=== PATIENT | male | born 1990 | race Two or more races ===

== ENCOUNTER 2020-06-15 00:15 | Emergency (ER) | payer OTHER ==
[~2020-06-15] VITALS: Ht 180.3 cm; Wt 120.5 kg
[2020-06-15] MEDS ORDERED: ACETAMINOPHEN 325 MG TABLET PO ONE (02:15)
[2020-06-15 03:01] LABS: COVID AG,FIA SOURCE NASOPHARYNGEAL
[2020-06-15] MEDS ORDERED: METOCLOPRAMIDE HCL 5 MG/ML 2 ML VIAL IVP ONE (03:45)
[2020-06-15 03:54] LABS: BASOPHILS % (AUTO) 0.8 % (0.0-2.0); EOSINOPHILS % (AUTO) 7.4 % (1.0-6.0); HEMOGLOBIN 13.6 g/dL (13.5-17.5); LYMPHOCYTES # (AUTO) 3.3 K/uL (1.0-4.8); LYMPHOCYTES % (AUTO) 29.9 % (22.0-44.0); MEAN CORPUSCULAR HEMOGLOBIN 27.6 pg (26.0-34.0); MEAN CORPUSCULAR HGB CONC 33.1 G/dL (31.0-37.0); MEAN CORPUSCULAR VOLUME 83 fL (80-100); MONOCYTES # (AUTO) 0.8 K/uL (0.1-1.0); MONOCYTES % (AUTO) 7.3 % (2.0-9.0); NEUTROPHILS % (AUTO) 54.6 % (40.0-70.0); PLATELET COUNT (AUTO) 338 K/uL (150-450); RED BLOOD CELL COUNT(AUTO) 4.92 MIL/uL (4.50-5.90); RED CELL DISTRIBUTION WIDTH 13.9 % (11.5-14.5)
[2020-06-15 04:03] LABS: ALANINE AMINOTRANSFERASE 41 U/L (12-78); ALBUMIN 3.5 g/dL (3.4-5.0); ALKALINE PHOSPHATASE 75 U/L (46-116); ASPARTATE AMINOTRANSFERASE 21 U/L (15-37); BILIRUBIN,TOTAL 0.4 mg/dL (0.1-1.0); CALCIUM, TOTAL 8.7 mg/dL (8.8-10.5); CARBON DIOXIDE 26 mmol/L (22-29); CREATININE 0.98 mg/dL (0.60-1.30); GLOMERULAR FILTR. RATE CALC > 60 mL/min (>60); GLUCOSE,RANDOM 92 mg/dL (70-110); TOTAL PROTEIN, SERUM 7.5 g/dL (6.4-8.2); UREA NITROGEN, BLOOD 13 mg/dL (7-18)
[2020-06-15 04:25] LABS: ANION GAP 8 mmol/L (8-16); CHLORIDE 106 mmol/L (98-107); POTASSIUM 4.3 mmol/L (3.5-5.1); SODIUM SERUM 140 mmol/L (136-145)
[2020-06-15 09:11] VITALS: BP 120/72
== END 2020-06-15 10:00 | disposition home or self-care (01) ==
LOC: EMS 00:18
DX: R51.9 Headache, unspecified (principal); Z20.822 Contact with and (suspected) exposure to COVID-19
CPT/HCPCS: 36415; 80053; 82962; 85025; 87426; 93005; 96374; 99285; J2765; U0003

== ENCOUNTER 2023-09-30 17:54 | Emergency (ER) | payer BC, OTHER ==
[~2023-09-30] VITALS: Ht 180.3 cm; Wt 120.4 kg
[2023-09-30 18:45] VITALS: BP 127/79; PULSE 75; RESP 16; TEMP 97.7
[2023-09-30] MEDS ORDERED: AMOX1TAB16 PO (19:05)
[2023-09-30] MEDS: PERTUSS(ACELL),DIPH,TET/PF 0.5 ML SYRINGE [ADULT] IM. ONE (20:04)
[2023-09-30] MEDS: BACITRACIN 0.9 GM PACKET OINTMENT TP ONE (20:06)
[2023-09-30] MEDS: RABIES VACCINE, HUMAN DIPLOID/PF 2.5 UNITS/ML VIAL IM. ONE (20:06)
[2023-09-30] MEDS: AMOX TR/POT CLAV 875 MG/125 MG TABLET PO ONE (20:06)
[2023-09-30] MEDS: RABIES IMMUNE GLOBULIN/PF 150 UNIT/ML 10 ML VIAL IM. ONE (20:07)
== END 2023-09-30 20:45 | disposition home or self-care (01) ==
LOC: EMS 18:09
DX: S61.253A Open bite of left middle finger without damage to nail, initial encounter (principal); W54.0XXA Bitten by dog, initial encounter; Y93.89 Activity, other specified; Y92.89 Other specified places as the place of occurrence of the external cause; Y99.8 Other external cause status
CPT/HCPCS: 90375; 90471; 90472; 90675; 90715; 96372; 99284

== ENCOUNTER 2023-10-02 15:03 | Emergency (ER) | payer BC ==
[~2023-10-02] VITALS: Ht 180.3 cm; Wt 120.5 kg
[~2023-10-02 15:03] MED LIST: AMOX1TAB16 PO
[2023-10-02 15:10] VITALS: BP 127/74; PULSE 79; RESP 16; TEMP 98.4
[2023-10-02] MEDS: RABIES VACCINE, HUMAN DIPLOID/PF 2.5 UNITS/ML VIAL IM. ONE (15:53)
== END 2023-10-02 15:59 | disposition home or self-care (01) ==
LOC: EMS 15:04
DX: S61.233D Puncture wound without foreign body of left middle finger without damage to nail, subsequent encounter (principal); Z29.14 Encounter for prophylactic rabies immune globulin; Z48.00 Encounter for change or removal of nonsurgical wound dressing; W54.0XXD Bitten by dog, subsequent encounter
CPT/HCPCS: 90471; 90675; 99281; 99283

== ENCOUNTER 2023-10-07 18:50 | Emergency (ER) | payer BC ==
[~2023-10-07] VITALS: Ht 180.3 cm; Wt 120.4 kg
[2023-10-07 19:02] VITALS: BP 142/85; PULSE 71; RESP 18; TEMP 98.8
[2023-10-07] MEDS: RABIES VACCINE, HUMAN DIPLOID/PF 2.5 UNITS/ML VIAL IM. ONE (19:46)
== END 2023-10-07 19:52 | disposition home or self-care (01) ==
LOC: EMS 18:50
DX: S61.452D Open bite of left hand, subsequent encounter (principal); Z29.14 Encounter for prophylactic rabies immune globulin; W54.0XXD Bitten by dog, subsequent encounter
CPT/HCPCS: 90471; 90675; 99281

== ENCOUNTER 2023-11-12 19:16 | Emergency (ER) | payer BC ==
[~2023-11-12] VITALS: Ht 180.3 cm; Wt 120.5 kg
[~2023-11-12 19:16] MED LIST changes: +AMOX-457 PO; -AMOX1TAB16 PO
[2023-11-12 21:39] LABS: BASOPHILS % (AUTO) 0.9 % (0.0-2.0); EOSINOPHILS % (AUTO) 5.1 % (1.0-6.0); HEMOGLOBIN 14.3 g/dL (13.5-17.5); LYMPHOCYTES # (AUTO) 3.6 K/uL (1.0-4.8); LYMPHOCYTES % (AUTO) 26.8 % (22.0-44.0); MEAN CORPUSCULAR HEMOGLOBIN 27.6 pg (26.0-34.0); MEAN CORPUSCULAR HGB CONC 32.5 G/dL (31.0-37.0); MEAN CORPUSCULAR VOLUME 85 fL (80-100); MONOCYTES # (AUTO) 1.2 K/uL (0.1-1.0); MONOCYTES % (AUTO) 8.8 % (2.0-9.0); NEUTROPHILS # (AUTO) 7.9 K/uL (1.8-7.7); NEUTROPHILS % (AUTO) 58.4 % (40.0-70.0); PLATELET COUNT (AUTO) 399 K/uL (150-450); RED BLOOD CELL COUNT(AUTO) 5.19 MIL/uL (4.50-5.90); RED CELL DISTRIBUTION WIDTH 13.8 % (11.5-14.5); WHITE BLOOD COUNT (AUTO) 13.5 K/uL (4.5-11.0)
[2023-11-12 21:47] LABS: ANION GAP 5 mmol/L (8-16); CALCIUM, TOTAL 9.1 mg/dL (8.8-10.5); CARBON DIOXIDE 32 mmol/L (22-29); CHLORIDE 104 mmol/L (98-107); CREATININE 0.88 mg/dL (0.60-1.30); GLOMERULAR FILTR. RATE CALC > 60 mL/min (>60); GLUCOSE,RANDOM 82 mg/dL (70-110); SODIUM SERUM 141 mmol/L (136-145); UREA NITROGEN, BLOOD 15 mg/dL (7-18)
[2023-11-12 22:22] LABS: APPEARANCE,URINE CLEAR (CLEAR); BILIRUBIN,URINE NEGATIVE (NEGATIVE); COLOR,URINE LIGHT YELLOW (YELLOW); GLUCOSE, URINE (UA) NEGATIVE (NEGATIVE); KETONES,URINE NEGATIVE (NEGATIVE); LEUKOCYTE ESTERASE ,URINE NEGATIVE (NEGATIVE); NITRATE,URINE NEGATIVE (NEGATIVE); OCCULT BLOOD,URINE NEGATIVE (NEGATIVE); PROTEIN,URINE NEGATIVE (NEGATIVE); SPECIFIC GRAVITIY, URINE 1.025 (1.003-1.030); UROBILINOGEN,URINE <=1.0 mg/dL (<=1.0)
[2023-11-12] MEDS: KETOROLAC TROMETHAMINE 60 MG/2 ML VIAL IM ONE (22:28)
[2023-11-12] MEDS: OXYMETAZOLINE HCL 0.05% 15 ML NASAL SPRAY NASAL ONE (22:28)
[2023-11-12 22:29] LABS: INFLUENZA A-RTPCR,COMBO NEGATIVE (NEGATIVE); INFLUENZA B-RTPCR,COMBO NEGATIVE (NEGATIVE); RESPIRATORY SYNCYTIAL VRS-PCR NEGATIVE (NEGATIVE); SARS COVID19 RTPCR, COMBO NEGATIVE (NEGATIVE)
[2023-11-12 22:44] LABS: BACTERIA,URINE None Seen /HPF (None Seen); RBC,URINE None Seen /HPF (0-2); SQUAMOUS EPITHELIAL CELL,UR Rare /LPF (None Seen); WBC,URINE 0-2 /HPF (0-5)
[2023-11-12] MEDS ORDERED: IBUP-1492 PO (22:52)
[2023-11-12] MEDS ORDERED: AMOX500C2 PO (22:53)
[2023-11-12 23:28] VITALS: BP 139/81; PULSE 73; RESP 18; TEMP 98.3
== END 2023-11-12 23:58 | disposition home or self-care (01) ==
LOC: EMS 19:16
DX: J32.9 Chronic sinusitis, unspecified (principal); R53.1 Weakness; M79.10 Myalgia, unspecified site; Z20.822 Contact with and (suspected) exposure to COVID-19
CPT/HCPCS: 99283; 0241U; 80048; 81001; 85025; 36415; 96372; J1885